=== PATIENT | female | born 1990 | race Caucasian/White ===

== ENCOUNTER 2016-12-29 16:11 | Outpatient (CLI) | payer OTHER ==
[~2016-12-29] VITALS: Ht 162.6 cm; Wt 75.0 kg
[2016-12-29] MEDS ORDERED: PREN1TAB60 PO (17:40)
== END 2016-12-29 18:12 | disposition home or self-care (01) ==
LOC: LDOP 16:11
PROVIDERS: ATTEND Obstetrics & Gynecology
DX: O42.92 Full-term premature rupture of membranes, unspecified as to length of time between rupture and onset of labor (principal); Z3A.39 39 weeks gestation of pregnancy
CPT/HCPCS: 59025; 89060; 99201; G0463; Q0114